=== PATIENT | male | born 1960 | race Caucasian/White ===

== ENCOUNTER 2020-01-20 06:19 | Outpatient (CLI) | payer MEDICARE, OTHER ==
[2020-01-20 12:05] LABS: Hemoglobin 15.3 g/dL (14.0-18.0); Mean Corpuscular HGB CONC 32.8 g/dL (32.0-36.0); Mean Corpuscular Hemoglobin 28.9 pg (27.0-31.0); Mean Corpuscular Volume 87.9 fL (78.0-98.0); Mean Platelet Volume 7.4 fL (7.4-10.4); Platelet Count 333 thou/uL (130-400); RBC Distribution Width 12.8 % (11.5-14.5); Red Blood Cell (RBC) Count 5.31 mill/uL (4.70-6.10); White Blood Cell (WBC) Count 9.7 thou/uL (4.8-10.8)
[2020-01-20 12:24] LABS: INR-International Normal Ratio 0.9; PTT 26.5 sec (22.9-36.1); Prothrombin Time 11.9 sec (12.0-14.7)
[2020-01-20 12:25] LABS: ALT (SGPT) 52 U/L (8-55); AST (SGOT) 33 U/L (5-34); Albumin 4.1 g/dL (3.5-5.0); Alkaline Phosphatase 182 U/L (40-110); Bilirubin, Direct 0.2 mg/dL (0.1-0.3); Bilirubin, Total 0.4 mg/dL (0.2-1.2); Protein, Total 7.9 g/dL (6.0-8.3)
[2020-01-20 18:31] LABS: SARS-CoV-2 MS2 Positive; SARS-CoV-2 N Gene Negative; SARS-CoV-2 S Gene Negative; SARS-CoV-2 orf1ab Negative
== END 2020-01-20 06:20 | disposition home or self-care (01) ==
LOC: LABBT 06:19
PROVIDERS: ATTEND Neurological Surgery
DX: Z01.818 Encounter for other preprocedural examination (principal); Z11.59 Encounter for screening for other viral diseases; M48.061 Spinal stenosis, lumbar region without neurogenic claudication; M54.16 Radiculopathy, lumbar region
CPT/HCPCS: 80076; 85027; 85610; 85730; 93005; U0003; 87635; 93010

== ENCOUNTER 2020-01-22 05:37 | Day surgery (SDC) | payer MEDICARE ==
[2020-01-20 09:40] VITALS: BMI 29.0
--- NOTE | 2020-01-22 06:21 | HP ---
HISTORY OF PRESENT ILLNESS: Mr. Talamantes is a 59-year-old man, today here to discuss severe lower back pain that started after lifting a trailer hitch. Since that time, he has had progressively worsening lower back pain, claudication symptoms of both the right lower extremity L5 and left lower extremity L3 radicular pain. He has had 2 rounds of three epidural steroid injections each and feels they help only a little for a short duration. He denies weakness. States he cannot walk more than half a block at a time before he needs to sit down. MRI from [facility] reveals several areas of stenosis. Most notably, he has severe foraminal stenosis at L3 on the left and L5 on the right, and has moderate to severe central canal stenosis at L3-L4. He also has scoliosis. PHYSICAL EXAMINATION: He is alert and oriented x3. Gait is stooped and antalgic. Lower extremity exam is normal. He does have a positive right straight leg raise and a positive left femoral stretch. PAST MEDICAL HISTORY: Significant for depression, glaucoma, anxiety, seasonal allergies, hepatitis. PAST SURGICAL HISTORY: Neck surgery x2. CURRENT MEDICATIONS: 1. Carbamazepine. 2. Quetiapine. 3. Omeprazole. 4. Kittery. ALLERGIES: NO KNOWN DRUG ALLERGIES. ASSESSMENT: Lumbar spinal stenosis. PLAN: Dr. Mccord met with the patient and reviewed his imaging and advocated for an L3-L4 decompression with a left L3 and right L5 foraminotomy. He explained to the patient the risks, benefits, and alternatives to the procedure. The patient expressed understanding and would like to move forward with surgery as discussed. I do believe the patient is mentally competent and capable of making medical decisions for himself and we will move forward with surgery as planned. Job ID: [id number]
[2020-01-22] MEDS ORDERED: Fentanyl 100 MCG/2 ML VIAL ONE ×5 (06:33→09:19)
[2020-01-22] MEDS ORDERED: Thrombin 5000 UNITS/5 ML VIAL ONE (06:34)
[2020-01-22] MEDS ORDERED: Bupivacaine PF 0.5% 30 ML VIAL ONE (06:34)
[2020-01-22] MEDS ORDERED: SUGAMMADEX SODIUM 200 MG/2 ML VIAL ONE (06:58)
[2020-01-22] MEDS ORDERED: Tamsulosin HCl 0.4 MG CAP ONE (09:14)
[2020-01-22] MEDS ORDERED: HYDROcodone/Acetaminophen 5/325 mg Tablet ONE (10:34)
--- NOTE | 2020-01-22 13:59 | OP ---
DATE OF PROCEDURE: 01/22/2020 TALENT ACQUISITION COORDINATOR: Renan Medrano PA-C INDICATION: Pain. DIAGNOSIS: Lumbar stenosis and lumbar radiculopathy. PROCEDURES PERFORMED: 1. L3-L4 decompression and left L3 foraminotomy. 2. Right L5 foraminotomy. ANESTHESIA: General. DESCRIPTION OF PROCEDURE: The patient was brought into the operating room and placed under general anesthesia. He was flipped from the supine to prone position on the operating room table. A linear incision was planned in two locations, one at L3-L4 and one at L5-S1. After prepping and draping and after an appropriate preoperative pause, the L3-L4 incision was created. A self-retaining retractor was placed. The C-arm images were obtained to confirm the appropriate location. The laminectomy was performed at the L3-L4 interface and more aggressive medial facetectomy was performed on the left side to decompress the lateral recesses in the exiting L3 nerve root through the foramen. After complete the decompression at that area, we refocused our attention below at L5, where a second incision was created. A self-retaining retractor was placed for exposure of the right L5-S1 interface. A C-arm image was confirmed to ensure the appropriate location. A high-speed cutting drill bit as well as 2, 3, and 4 mm Kerrisons were then used to perform a foraminotomy over the exiting L5 nerve root. After completing the decompression, both wounds were irrigated. Hemostasis was maintained throughout. The wound was then closed in anatomic layers and a pressure dressing was applied. There were no known procedural complications. Job ID: [id number]
[2020-01-22] MEDS ORDERED: Rocuronium Bromide 10 MG/ML (10ML VIAL) ONE (14:01)
[2020-01-22] MEDS ORDERED: PROPOFOL 200 MG/20 ML VIAL ONE (14:01)
[2020-01-22] MEDS ORDERED: Lidocaine 1% PF 5 ML VIAL ONE (14:01)
[2020-01-22] MEDS ORDERED: Succinylcholine Chloride 20 MG/ML 10 ml SYRINGE FS ONE (14:01)
[2020-01-22] MEDS ORDERED: Ondansetron PF 4 MG/2 ML Vial ONE (14:01)
== END 2020-01-22 13:00 | disposition home or self-care (01) ==
LOC: SDC 05:37
PROVIDERS: ATTEND Neurological Surgery
PROC: 01NB0ZZ Release Lumbar Nerve, Open Approach (ICD-10-PCS; principal; 2020-01-22)
DX: M48.062 Spinal stenosis, lumbar region with neurogenic claudication (principal); M54.16 Radiculopathy, lumbar region; M41.9 Scoliosis, unspecified; F32.9 Major depressive disorder, single episode, unspecified; F41.9 Anxiety disorder, unspecified; J30.2 Other seasonal allergic rhinitis; Z79.899 Other long term (current) drug therapy; Z98.1 Arthrodesis status; Z90.3 Acquired absence of stomach [part of]
CPT/HCPCS: 76000; J0690; J2001; J2405; J2704; J3010; J3370; S0020